=== PATIENT | female | born 1945 | race Caucasian/White ===

== ENCOUNTER 2018-07-14 08:48 | Day surgery (SDC) ==
[~2018-07-14 08:48] MED LIST: BRIMONIDINE TARTRATE 0.2% OPTH SOL OP PRN; BSS WITH EPINEPHRINE OP ONE; DEX-MOXI-KETOR OPTH INJ 1/0.5/0.4 MG/ML IO ONE; LIDOCAINE 1%/PHENYLEPHRINE 1.5% BSS (SURGERY) INTRAOCULA ONE; ZOFRAN 4 MG/2 ML IVP ONE
[2018-07-14] MEDS: TETRACAINE 0.5% UNIT-DOSE OP PRN ×2 (09:30→10:02)
[2018-07-14] MEDS: CYCLOGYL 2% OPTH OP PRN ×3 (09:30→09:40)
[2018-07-14] MEDS: BETADINE OPTH PREP OP PRN ×2 (09:30→10:02)
[2018-07-14] MEDS ORDERED: LIDOCAINE 1% 20 ML MDV ID STA (09:30)
[2018-07-14] MEDS ORDERED: VERSED ONE (10:02)
[2018-07-14] MEDS ORDERED: SUBLIMAZE ONE (10:02)
[2018-07-14] MEDS ORDERED: ZOFRAN 4 MG/2 ML ONE (10:02)
[2018-07-14 11:01] VITALS: TEMP 97.2
[2018-07-14 15:59] VITALS: BP 142/78
== END 2018-07-14 10:50 | disposition home or self-care (01) ==
LOC: SURG 08:48
PROVIDERS: ATTEND Ophthalmology
DX: H25.811 Combined forms of age-related cataract, right eye (principal)